=== PATIENT | female | born 1995 | race Hispanic/Latino ===

== ENCOUNTER → 2018-01-30 | Day surgery (SDC) | payer OTHER ==
[2018-01-26 15:52] LABS: BASOPHILS % 0.3 % (0.0-1.0); EOSINOPHILS # (AUTO) 0.2 (0.0-0.4); EOSINOPHILS % 1.9 % (0.0-6.0); HEMATOCRIT 36.7 % (34.2-44.1); HEMOGLOBIN 11.7 g/dL (12.0-16.0); LYMPHOCYTES # (AUTO) 3.1 (1.0-3.2); LYMPHOCYTES % 34.2 % (18.0-39.1); MEAN CORPUSCULAR HEMOGLOBIN 26.5 pg (28-32); MEAN CORPUSCULAR HGB CONC 31.9 g/dL (31-35); MEAN CORPUSCULAR VOLUME 83.2 fL (81-99); MONOCYTES # (AUTO) 0.8 (0.2-0.8); MONOCYTES % 8.4 % (4.4-11.3); NEUTROPHILS % 54.9 % (38.7-80.0); PLATELET COUNT 298 x10e3/uL (140-360); RED BLOOD COUNT 4.41 x10e6/uL (3.6-5.1); RED CELL DISTRIBUTION WIDTH 20.5 % (11.7-14.4)
[2018-01-26 15:54] LABS: CLARITY,URINE CLOUDY (CLEAR); COLOR,URINE YELLOW (YELLOW)
[2018-01-26 15:55] LABS: BILIRUBIN,URINE NEGATIVE (NEGATIVE); KETONES,URINE NEGATIVE (NEGATIVE); LEUKOCYTE ESTERASE ,URINE 1+ (NEGATIVE); NITRITE,URINE NEGATIVE (NEGATIVE); PROTEIN,URINE DIPSTICK NEGATIVE (NEGATIVE); URINE UROBILINOGEN 0.2 mg/dL (0.2 - 1)
[~2018-01-30] MED LIST: ATROPINE SULFATE 1 MG/ML VIAL ONE; BUPIVACAINE 0.25%/EPI 30ML SDV INJ ONE; CEFAZOLIN SOD 1 GM VIAL ONE; DEXAMETHASONE SOD PHOS INJ 4 MG/ML VIAL ONE; FENTANYL CITRATE/PF 100MCG/2 ML INJ ONE; FERRALET 90 DU1 EACH PO; KETOROLAC TROMETHAMINE 30 MG/ML VIAL ONE; LIDOCAINE HCL 2% LOCAL INJ 5 ML SDV VIAL INJ ONE; MIDAZOLAM HCL 2 MG/2 ML VIAL ONE; NEOSTIGMINE 5 MG/5ML SYR ONE; ONDANSETRON HCL INJ 2 MG/ML VIAL ONE; PROPOFOL IV EMULSION 10 MG/ML 20 ML VIAL ONE; ROCURONIUM BROMIDE 10 MG/ML 5ML VIAL ONE; SEVOFLURANE INHAL SOLN 250 ML PEN BTL ONE
--- OUTSIDE RECORDS SUMMARY | 2018-01-30 07:36 | XMS REPORT | Continuity of Care Document ---
Author Author [facility] Interface Address Unknown Phone Unavailable Problems Problem Status Onset Date Classification Date Reported Comments Source Discharge Diagnosis: Threatened miscarriage 04/04/2017 04/07/2017 [facility] VAGINAL BLEEDING Active 04/03/2017 [facility] Medications Medication Details Route Status Patient Instructions Ordering Provider Order Date Source Saline Flush 0.9% 10 mL, Route: IVP, Drug Form: INJ, Dosing Weight 95.455, kg, PRN, PRN Line Flush, Start date: 04/03/17 21:25:00 UNEMPLOYMENT EXAMINER, Duration: 30 day, Stop date: 05/03/17 21:24:00 CSTNotes: (Same as: BD Posiflush) No Longer Active 04/04/2017 [facility] Saline Flush 0.9% 10 mL, Route: IVP, Drug Form: INJ, kg, PRN, PRN Line Flush, Start date: 04/03/17 20:21:00 UNEMPLOYMENT EXAMINER, Duration: 30 day, Stop date: 05/03/17 20:20:00 CSTNotes: Same as: BD Posiflush Sterile Inactive 04/04/2017 [facility] pantoprazole 40 mg, Route: IVP, Drug form: INJ, ONCE, kg, Priority: STAT, Start date: 04/03/17 20:21:00 UNEMPLOYMENT EXAMINER, Stop date: 04/03/17 20:21:00 CSTNotes: For IV push reconstitute with 10 ml 0.9% sodium chloride and push over 2 minutes. (Same as: Protonix) Inactive 04/04/2017 [facility] Ondansetron 4 mg, 2 mL, Route: IVP, Drug form: INJ, ONCE, kg, Priority: STAT, Start date: 04/03/17 20:21:00 UNEMPLOYMENT EXAMINER, Stop date: 04/03/17 20:21:00 CSTNotes: (Same as: Zofran) MEDICATION WASTE Product Size: 4 mg Product Wasted: ___ mg Inactive 04/04/2017 [facility] Allergies, Adverse Reactions, Alerts Substance Category Reaction Severity Reaction type Status Date Reported Comments Source cephalosporins Assertion Drug allergy Active [facility] Immunizations Immunization Date Given Site Status Last Updated Comments Source Results Order Name Results Value Reference Range Date Interpretation Comments Source HEMATOLOGY D-Dimer null 04/04/2017 [facility] MOLECULAR DIAGNOSTIC N gonorrhea by Amp Det (APTIMA) Negative *NA* (04/03/17 10:42 PM) Negative 04/04/2017 [facility] MOLECULAR DIAGNOSTIC Source [facility] Vaginal *NA* (04/03/17 10:42 PM) 04/04/2017 [facility] MOLECULAR DIAGNOSTIC C trachomatis by Amp Det (APTIMA) Positive 1 *ABN* (04/03/17 10:42 PM) Negative 04/04/2017 Result Comment: "Significant Findings called to Bhavna CUTLER at 04/05/2017 10:22_ by WF_. Read Back OK." [facility] CHEM PANEL eGFR 136 mL/min/1.73m2 04/04/2017 Result Comment: The eGFR is calculated using the CKD-EPI formula. In most young, healthy individuals the eGFR will be >90 mL/min/1.73m2. The eGFR declines with age. An eGFR of 60-89 may be normal in some populations, particularly the elderly, for whom the CKD-EPI formula has not been extensively validated. Use of the eGFR is not recommended in the following populations: Individuals with unstable creatinine concentrations, including patients and those with serious co-morbid conditions. Patients with extremes in muscle mass or diet. The data above are obtained from the National Kidney Disease Education Program (NKDEP) which additionally recommends that when the eGFR is used in patients with extremes of body mass index for purposes of drug dosing, the eGFR should be multiplied by the estimated BMI. [facility] CHEM PANEL CO2 24 meq/L 24 - 32 04/04/2017 [facility] CHEM PANEL Chloride Lvl 108 meq/L 95 - 109 04/04/2017 [facility] CHEM PANEL Calcium Lvl 8.5 mg/dL 8.5 - 10.5 04/04/2017 [facility] CHEM PANEL Sodium Lvl 137 meq/L 135 - 145 04/04/2017 [facility] CHEM PANEL Creatinine Lvl 0.52 mg/dL 0.50 - 1.40 04/04/2017 [facility] CHEM PANEL Potassium Lvl 3.4 meq/L 3.5 - 5.1 04/04/2017 [facility] CHEM PANEL BUN 8 mg/dL 7 - 22 04/04/2017 [facility] CHEM PANEL Glucose Lvl 95 mg/dL 70 - 99 04/04/2017 [facility] CHEM PANEL AGAP 8.4 meq/L 10.0 - 20.0 04/04/2017 [facility] ENDOCRINOLOGY hCG Tot 1104 mIU/mL 04/04/2017 [facility] HEMATOLOGY Monocytes 7.7 % 2.0 - 12.0 04/04/2017 [facility] HEMATOLOGY Basophils 0.2 % 0.0 - 1.0 04/04/2017 [facility] HEMATOLOGY Eosinophils 0.8 % 0.0 - 4.0 04/04/2017 [facility] Microcyte 1+ *ABN* (04/03/17 9:25 PM) None Seen 04/04/2017 [facility] HEMATOLOGY Eosinophils # 0.1 K/CMM 0.0 - 0.5 04/04/2017 [facility] Monocytes # 0.7 K/CMM 0.0 - 0.8 04/04/2017 [facility] Lymphocytes # 3.0 K/CMM 1.0 - 5.5 04/04/2017 [facility] Segs-Bands # 5.2 K/CMM 1.5 - 8.1 04/04/2017 [facility] Lymphocytes 33.2 % 20.0 - 40.0 04/04/2017 [facility] Segs 58.1 % 45.0 - 75.0 04/04/2017 [facility] Hgb 10.3 g/dL 12.0 - 16.0 04/04/2017 [facility] RBC 4.10 M/CMM 4.20 - 5.40 04/04/2017 [facility] WBC 9.0 K/CMM 3.7 - 10.4 04/04/2017 [facility] MCHC 32.6 g/dL 32.0 - 36.0 04/04/2017 [facility] MCH 25.1 pg 27.0 - 31.0 04/04/2017 [facility] HEMATOLOGY MCV 76.8 fL 80.0 - 98.0 04/04/2017 [facility] Hct 31.5 % 36.0 - 48.0 04/04/2017 [facility] MPV 8.3 fL 7.4 - 10.4 04/04/2017 [facility] Platelet 319 K/CMM 133 - 450 04/04/2017 [facility] RDW 17.2 % 11.5 - 14.5 04/04/2017 [facility] BLOOD BANK RESULTS ABO/Rh A POS 04/04/2017 [facility] URINE AND STOOL UA Leuk Est Negative (04/03/17 8:21 PM) Negative 04/04/2017 [facility] URINE AND STOOL UA Bili Negative *NA* (04/03/17 8:21 PM) Negative 04/04/2017 [facility] URINE AND STOOL UA Nitrite Negative (04/03/17 8:21 PM) Negative 04/04/2017 [facility] URINE AND STOOL UA Urobilinogen 0.2 EU/dL 0.1 - 1.0 04/04/2017 [facility] URINE AND STOOL UA Blood Trace *ABN* (04/03/17 8:21 PM) Negative 04/04/2017 [facility] URINE AND STOOL UA Protein Negative (04/03/17 8:21 PM) Negative 04/04/2017 [facility] URINE AND STOOL UA pH 6.5 5.0 - 8.0 04/04/2017 [facility] URINE AND STOOL UA Ketones Negative *NA* (04/03/17 8:21 PM) Negative 04/04/2017 [facility] URINE AND STOOL UA Glucose Negative (04/03/17 8:21 PM) Negative 04/04/2017 [facility] URINE AND STOOL UA Color Yellow *NA* (04/03/17 8:21 PM) Yellow 04/04/2017 [facility] URINE AND STOOL UA Spec Grav 1.025 <=1.030 04/04/2017 [facility] URINE AND STOOL UA Turbidity Clear (04/03/17 8:21 PM) Clear 04/04/2017 [facility] URINE AND STOOL UA WBC 5 /HPF 0 - 5 04/04/2017 [facility] URINE AND STOOL UA RBC 5 /HPF 0 - 2 04/04/2017 [facility] URINE AND STOOL UA Bacteria Occasional /HPF None Seen /HPF 04/04/2017 [facility] URINE AND STOOL UA Mucus Many /LPF None Seen /LPF 04/04/2017 [facility] URINE AND STOOL UA Sq Epi Few /LPF Few /LPF 04/04/2017 [facility] < 14 weeks single gestation US < 14 weeks single gestation US Study: Pelvic ultrasound History: Supervision of Comments: Transabdominal OB ultrasound was obtained utilizing real-time grayscale and color Doppler images. [<Transvaginal OB ultrasound was also performed for better visualization of anatomy.>] Uterus: Uterine endometrium is top normal measuring 1.7 cm A single intrauterine gestational sac is seen. However, no pole or yolk sac seen. Mean sac diameter of 3 mm corresponds to 4 weeks 5 days gestational age. Right ovary: Normal in size and appearance measuring 3.4 x 1.9 x 1.8 cm. Left ovary: Measures 3.4 x 2.5 x 2.6 cm. A 1.9 cm complex cyst in the left ovary is likely corpus luteal cyst. Impression: Single intrauterine gestation sac without pole or yolk sac. Differential considerations include early IUP, ectopic and missed . Correlate with serial ultrasound and beta-hCG. 04/04/2017 - - Read by: Lina Dunn MD Dictated Date/time: 04/04/17 01:04 Electronically Signed by: Lina Dunn MD 04/04/17 01:11 FINAL REPORT [facility] Vital Signs Vital Sign Value Date Comments Source Systolic (mm Hg) 112 04/04/2017 [facility] Diastolic (mm Hg) 81 04/04/2017 [facility] Respitory Rate 20 04/04/2017 [facility] Heart Rate 75 04/04/2017 [facility] BMI Calculated 35.02 04/04/2017 [facility] Weight 95.455 04/04/2017 [facility] Heart Rate 68 04/04/2017 [facility] Respitory Rate 18 04/04/2017 [facility] Systolic (mm Hg) 107 04/04/2017 [facility] Diastolic (mm Hg) 74 04/04/2017 [facility] Height 165.1 cm 04/04/2017 [facility] Temperature Oral (F) 98.9 F 04/04/2017 [facility] Encounters Location Location Details Encounter Type Encounter Number Reason For Visit Attending Provider ADM Date DC Date Status Source [facility] Emergency [id number] Zain Rollins 04/04/2017 04/04/2017 [facility] Procedures Procedure Code Date Perfomer Comments Source
--- OUTSIDE RECORDS SUMMARY | 2018-01-30 07:36 | XMS REPORT | Summary of Care ---
Author Author [facility] Organization [facility] Address Unknown Phone Unavailable Encounter ROBERT Regan(HALEIGH) [id number] Date(s): 04/03/17 - 04/04/17 [facility] [address] [place] [address]- [phone] Discharge Diagnosis: Threatened miscarriage Discharge Disposition: Home or Self Care Attending Physician: Zain Rollins MD Vital Signs Most recent to 1 2 oldest [Reference Range]: Height 165.1 cm (04/03/17 8:19 PM) Temperature Oral 98.9 DegF [96.4-99.1 DegF] (04/03/17 8:19 PM) Blood Pressure 112/81 mmHg 107/74 mmHg [90-140/60-90 mmHg] (04/04/17 2:36 AM) (04/03/17 8:19 PM) Respiratory Rate 20 BRMIN 18 BRMIN [14-20 BRMIN] (04/04/17 2:36 AM) (04/03/17 8:19 PM) Peripheral Pulse 75 bpm 68 bpm Rate [60-100 bpm] (04/04/17 2:36 AM) (04/03/17 8:19 PM) Weight 95.455 kg (04/03/17 8:19 PM) Body Mass Index 35.02 m2 (04/03/17 8:19 PM) Problem List No data available for this section Allergies, Adverse Reactions, Alerts Substance Reaction Severity Status cephalosporins Active Medications ondansetron 4 mg, 2 mL, Route: IVP, Drug form: INJ, ONCE, kg, Priority: STAT, Start date: 20:21:00 MASSEUR/MASSEUSE, Stop date: 04/03/17 20:21:00 MASSEUR/MASSEUSE Notes: (Same as: Gerry) MEDICATION WASTE Product Size: 4 mgProduct Was tay: ___ mg Start Date: 04/03/17 Stop Date: 04/03/17 Status: Discontinued pantoprazole 40 mg, Route: IVP, Drug form: INJ, ONCE, kg, Priority: STAT, Start date: 7 20:21:00 MASSEUR/MASSEUSE, Stop date: 04/03/17 20:21:00 MASSEUR/MASSEUSE Notes: For IV push reconstitute with 10 ml 0.9% sodium chloride and push over 2 minutes. (Same as: Protonix) Start Date: 04/03/17 Stop Date: 04/03/17 Status: Discontinued Saline Flush 0.9% 10 mL, Route: IVP, Drug Form: INJ, kg, PRN, PRN Line Flush, Start date: 04/03/17 20:21:00 MASSEUR/MASSEUSE, Duration: 30 day, Stop date: 05/03/17 20:20:00 MASSEUR/MASSEUSE Notes: Same as: BD Posiflush Sterile Start Date: 04/03/17 Stop Date: 04/03/17 Status: Discontinued Saline Flush 0.9% 10 mL, Route: IVP, Drug Form: INJ, Dosing Weight 95.455, kg, PRN, PRN Line Flush , Start date: 04/03/17 21:25:00 MASSEUR/MASSEUSE, Duration: 30 day, Stop date: 05/03/17 21:24 :00 MASSEUR/MASSEUSE Notes: (Same as: BD Posiflush) Start Date: 04/03/17 Stop Date: 04/04/17 Status: Discontinued Results BLOOD BANK RESULTS Most recent to 1 oldest [Reference Range]: ABO/Rh A POS *Unknown* (04/03/17 8:25 PM) ELECTROLYTES Most recent to 1 oldest [Reference Range]: Sodium Lvl [135-145 137 mEq/L mEq/L] (04/03/17 9:25 PM) Potassium Lvl 3.4 mEq/L [3.5-5.1 mEq/L] *LOW* (04/03/17 9:25 PM) Chloride Lvl [95-109 108 mEq/L mEq/L] (04/03/17 9:25 PM) CO2 [24-32 mEq/L] 24 mEq/L (04/03/17 9:25 PM) AGAP [10.0-20.0 8.4 mEq/L mEq/L] *LOW* (04/03/17 9:25 PM) CHEM PANEL Most recent to 1 oldest [Reference Range]: Creatinine Lvl 0.52 mg/dL [0.50-1.40 mg/dL] (04/03/17 9:25 PM) eGFR 136 mL/min/1.73m2 1 *NA* (04/03/17 9:25 PM) BUN [7-22 mg/dL] 8 mg/dL (04/03/17 9:25 PM) Glucose Lvl [70-99 95 mg/dL mg/dL] (04/03/17 9:25 PM) Calcium Lvl 8.5 mg/dL [8.5-10.5 mg/dL] (04/03/17 9:25 PM) 1Result Comment: The eGFR is calculated using the [...] from the National Kidney Disease Education Program ( NKDEP) which additionally recommends that when the eGFR is used in patients with extremes of body mass index for purposes of drug dosing, the eGFR should be mul tiplied by the estimated BMI. ENDOCRINOLOGY Most recent to 1 oldest [Reference Range]: hCG Tot 1104 mIU/mL *NA* (04/03/17 9:25 PM) URINE AND STOOL Most recent to 1 oldest [Reference Range]: UA Turbidity [Clear] Clear (04/03/17 8:21 PM) UA Color [Yellow] Yellow *NA* (04/03/17 8:21 PM) UA pH [5.0-8.0] 6.5 (04/03/17 8:21 PM) UA Spec Grav 1.025 [<=1.030] (04/03/17 8:21 PM) UA Glucose Negative [Negative] (04/03/17 8:21 PM) UA Blood [Negative] Trace *ABN* (04/03/17 8:21 PM) UA Ketones Negative [Negative] *NA* (04/03/17 8:21 PM) UA Protein Negative [Negative] (04/03/17 8:21 PM) UA Urobilinogen 0.2 EU/dL [0.1-1.0 EU/dL] (04/03/17 8:21 PM) UA Bili [Negative] Negative *NA* (04/03/17 8:21 PM) UA Leuk Est Negative [Negative] (04/03/17 8:21 PM) UA Nitrite Negative [Negative] (04/03/17 8:21 PM) UA WBC [0-5 /HPF] 5 /HPF (04/03/17 8:21 PM) UA RBC [0-2 /HPF] 5 /HPF *HI* (04/03/17 8:21 PM) UA Bacteria [None Occasional /HPF Seen /HPF] *NA* (04/03/17 8:21 PM) UA Sq Epi [Few /LPF] Few /LPF *NA* (04/03/17 8:21 PM) UA Mucus [None Seen Many /LPF /LPF] *ABN* (04/03/17 8:21 PM) HEMATOLOGY Most recent to 1 oldest [Reference Range]: WBC [3.7-10.4 K/CMM] 9.0 K/CMM (04/03/17 9:25 PM) RBC [4.20-5.40 4.10 M/CMM M/CMM] *LOW* (04/03/17 9:25 PM) Hgb [12.0-16.0 g/dL] 10.3 g/dL *LOW* (04/03/17 9:25 PM) Hct [36.0-48.0 %] 31.5 % *LOW* (04/03/17 9:25 PM) MCV [80.0-98.0 fL] 76.8 fL *LOW* (04/03/17 9:25 PM) MCH [27.0-31.0 pg] 25.1 pg *LOW* (04/03/17 9:25 PM) MCHC [32.0-36.0 32.6 g/dL g/dL] (04/03/17 9:25 PM) RDW [11.5-14.5 %] 17.2 % *HI* (04/03/17 9:25 PM) Platelet [133-450 319 K/CMM K/CMM] (04/03/17 9:25 PM) MPV [7.4-10.4 fL] 8.3 fL (04/03/17 9:25 PM) Segs [45.0-75.0 %] 58.1 % (04/03/17 9:25 PM) Lymphocytes 33.2 % [20.0-40.0 %] (04/03/17 9:25 PM) Monocytes [2.0-12.0 7.7 % %] (04/03/17 9:25 PM) Eosinophils [0.0-4.0 0.8 % %] (04/03/17 9:25 PM) Basophils [0.0-1.0 0.2 % %] (04/03/17 9:25 PM) Segs-Bands # 5.2 K/CMM [1.5-8.1 K/CMM] (04/03/17 9:25 PM) Lymphocytes # 3.0 K/CMM [1.0-5.5 K/CMM] (04/03/17 9:25 PM) Monocytes # [0.0-0.8 0.7 K/CMM K/CMM] (04/03/17 9:25 PM) Eosinophils # 0.1 K/CMM [0.0-0.5 K/CMM] (04/03/17 9:25 PM) Microcyte [None 1+ Seen] *ABN* (04/03/17 9:25 PM) D-Dimer <0.27 ug/mL FEU *NA* (04/04/17 12:32 AM) MOLECULAR DIAGNOSTIC Most recent to 1 oldest [Reference Range]: Source APTIMA Vaginal *NA* (04/03/17 10:42 PM) N gonorrhea by Amp Negative Det (APTIMA) *NA* [Negative] (04/03/17 10:42 PM) C trachomatis by Amp Positive 1 Det (APTIMA) *ABN* [Negative] (04/03/17 10:42 PM) 1Result Comment: "Significant Findings called to Bhavna CUTLER at 04/05/2017 10:22_ by WF_. Read Back OK." Immunizations No data available for this section Procedures No data available for this section Social History Social History Type Response Smoking Status Never smoker; Exposure to Tobacco Smoke None; Cigarette Smoking Last 365 Days No; Reg Smoking Cessation Counseling No Assessment and Plan No data available for this section
[2018-01-30 12:05] VITALS: BP 118/77
--- NOTE | 2018-01-30 13:08 | Operative Report ---
DATE OF PROCEDURE: January 30, 2018 PREOPERATIVE DIAGNOSIS: Desires elective sterilization. POSTOPERATIVE DIAGNOSIS: Desires elective sterilization. OPERATION PERFORMED: Bilateral tubal occlusion via cautery. ANESTHESIA: General with Dr. Nathan. INDICATIONS: The patient is a 22-year-old 3, para 2-0-1-2, with last menstrual period February 28, 2017, status post normal spontaneous vaginal delivery January 22, 2018, with bleeding on Nexplanon ever since its insertion, who presents desiring elective sterilization. The risks, benefits, permanence and failure rate of the procedure at 2% were explained in detail. She chooses tubal ligation for permanent contraception. She declines other methods such as IUD for the contraception. She is, therefore, taken to the operating room at this time, but she will have her Nexplanon removed at her 2-week postoperative visit. FINDINGS AT SURGERY: There were a normal uterus, tubes and ovaries. A small bleeder in the midline was noted, but it was a small vessel and stopped with tamponade and a good occlusion of the tubes was obtained with the cautery. PROCEDURE: The patient was taken to the operating room and placed on the table in the supine position. General anesthesia was administered. The patient was placed in the lithotomy position. The perineum was prepared and draped in the usual sterile manner, as was the abdomen. Pelvic exam revealed a [id number], anteverted uterus with no adnexal masses. A weighted speculum was placed in the posterior vaginal wall. Then with the aid of a right-angle retractor, the anterior lip of the cervix was grasped. No tenaculum was used. A sponge stick was placed in the vagina for manipulation. It was attached to the drape using an Allis clamp. Then the garment sewing machine operator changed gloves, and we proceeded with the abdominal portion of the procedure. The bladder had been drained by in-and-out catheterization. A small incision was made just inferior to the umbilicus in the midline. The Veress needle was inserted through the incision into the peritoneal cavity. A pneumoperitoneum was created by insufflation of 4 liters of carbon dioxide gas under a filling pressure of 10 to 12 mmHg. The trocar was inserted after the Veress needle was removed, and the laparoscope was placed with confirmation that the peritoneal cavity had been entered. A 2nd trocar was placed through a midline suprapubic incision under direct visualization by laparoscopy. A probe was placed, and the contents of the abdomen and pelvis were visualized with findings of normal uterus, tubes and ovaries. No adhesions were noted. At this point, a LigaSure instrument was placed and the attention was turned to the right tube. It was traced to the fimbriated end for positive identification. The midampullary portion of the tube was then cauterized using the LigaSure instrument. Cautery was performed until the ammeter indicated that there was no further resistance and the tube was completely desiccated. This was applied in 2 places. It was apparent that the right tube was completely occluded, and the attention was turned to the left tube. It was grasped in the midampullary portion and traced to the fimbriated end for positive identification. The midampullary portion of the tube was then cauterized using the LigaSure instrument. Cautery was applied in 2 places until the ammeter indicated that there was no further resistance. It was apparent that the tube was completely occluded in the 2 spots, and at this point a small amount of bleeding was noted from the midline trocar. Dr. Johnson was consulted, general surgeon. He came in and looked and thought that it was a small bleeder that would tamponade easily and that no intervention was needed, and we observed the trocar for a while and no further bleeding was noted. We used suction irrigation to remove any of the blood that had come down earlier, and once this was done no active bleeding was noted and the procedure was deemed terminated. All the air and instruments were removed from the abdomen. The skin incisions were closed with inverted stitches of 4-0 Monocryl suture, thus completing the procedure. No complications were noted. Estimated blood loss was 20 mL. The patient tolerated the procedure well and was transferred from the operating room to the recovery room in stable condition. Job#: [id number] EV
== END | disposition home or self-care (01) ==
LOC: OR 07:33
PROVIDERS: ATTEND Obstetrics & Gynecology
DX: Z30.2 Encounter for sterilization (principal); N93.9 Abnormal uterine and vaginal bleeding, unspecified; D64.9 Anemia, unspecified; Z01.812 Encounter for preprocedural laboratory examination; Z32.02 Encounter for pregnancy test, result negative
CPT/HCPCS: 36415; 58670; 81003; 81025; 84702; 85025; J0461; J0690; J1100; J1885; J2001; J2250; J2405; J2704